=== PATIENT | male | born 2000 | race Caucasian/White ===

== ENCOUNTER 2022-11-26 03:32 | Emergency (ER) | payer MEDICAID ==
[~2022-11-26] VITALS: Ht 170.2 cm; Wt 123.0 kg
[2022-11-26 03:42] VITALS: BP 129/46; PULSE 73; RESP 12; TEMP 98; O2SAT 98
== END 2022-11-26 06:26 | disposition left against medical advice (07) ==
LOC: ER 04:46
DX: Z53.21 Procedure and treatment not carried out due to patient leaving prior to being seen by health care provider (principal)
CPT/HCPCS: 99281